=== PATIENT | male | born 1955 | race Caucasian/White ===

== ENCOUNTER → 2017-10-09 | Outpatient (RCR) | payer MEDICARE ==
[~2017-10-09] MED LIST: ATOR10TA; BETAPROSTATE; CALC625T; GLUC1TAB60; LVT.05T; SULF1TAB35
== END | disposition home or self-care (01) ==
LOC: CR3 09-09 10:00
PROVIDERS: ATTEND Internal Medicine
DX: Z29.8 Encounter for other specified prophylactic measures (principal)

== ENCOUNTER 2017-11-03 01:21 | Emergency (ER) | payer MEDICARE ==
[~2017-11-03] VITALS: Ht 175.3 cm; Wt 117.9 kg
--- NOTE | 2017-11-03 03:11 | ED Cough/URI ---
General Chief Complaint: Respiratory Problems Stated Complaint: SOA REACTION TO MEDS Nursing Triage Note: Pt c/o waking up Shortness of Air and got anxious. Started taking Doxycyline yesterday for a productive cough and was worried it was a medication reaction. Denies SOA at this time. Source: patient, other Exam Limitations: no limitations History of Present Illness Date Seen by Provider: November 03, 2017 Time Seen by Provider: 02:55 Initial Comments Patient resists to ER by private conveyance with his significant other and a chief complaint that for the past for 5 days she's been having some coughing and malaise. No fevers chills body aches nausea vomiting or diarrhea. He was seen by the PA at Dr. Merino's office and started on some doxycycline and Mucinex which he started taking and on his third dose he says he started having a bit of shortness of breath and was afraid it might be related to his medicine. Since being in the ER and this has passed. He does not have any medical allergies. He is having no stridor, difficulty swallowing secretions, productive cough. He does not smoke cigarettes and denies a history of asthma. Allergies and Home Medications Allergies Coded Allergies: codeine (Unverified Allergy, Mild, 11/03/17) Patient Home Medication List Home Medication List Reviewed: Yes Review of Systems Constitutional: No chills, No diaphoresis EENTM: No ear discharge, No ear pain Respiratory: No cough, No hemoptysis, No phlegm; short of breath; No wheezing Cardiovascular: No chest pain, No Hx of Intervention, No palpitations Gastrointestinal: No abdominal pain, No constipation, No diarrhea, No nausea, No vomiting Genitourinary: No discharge, No dysuria Musculoskeletal: No back pain, No joint pain Skin: No pruritus, No rash Past Emkdjnw-Qaqxdb-Qcgptm Hx Patient Social History Alcohol Use: Denies Use Recreational Drug Use: No Smoking Status: Never a Smoker Recent Foreign Travel: No Contact w/Someone Who Travel: No Recent Infectious Disease Expo: No Immunizations Up To Date Tetanus Booster (TDap): Less than 5yrs Seasonal Allergies Seasonal Allergies: No Past Medical History Eye Surgery Hypertension Reproductive Disorders: No Arthritis, Chronic Back Pain Loss of Vision: Bilateral Adverse Reaction/Blood Tranf: No Family Medical History No Pertinent Family Hx Physical Exam Vital Signs Vital Signs - First Documented 11/03/17 01:33 Temp 98.4 Pulse 62 Resp 20 B/P (MAP) 148/112 (124) Pulse Ox 96 Capillary Refill : Less Than 3 Seconds General Appearance: WD/WN, no apparent distress Eyes: Bilateral Eye Normal Inspection, Bilateral Eye PERRL, Bilateral Eye EOMI , Bilateral Eye Other (blind) HEENT: PERRL/EOMI, normal ENT inspection, pharynx normal, TM abnormal (R), TM abnormal (L) (mucoid effusion bilaterally) Neck: non-tender, full range of motion, supple, normal inspection Respiratory: chest non-tender, lungs clear, normal breath sounds, no respiratory distress, no accessory muscle use Cardiovascular: normal peripheral pulses, regular rate, rhythm, no edema Gastrointestinal: non tender, soft Procedures/Interventions Suture Size: 6-0 Progress/Results/Core Measures Suspected Sepsis Recent Fever Within 48 Hours: No Infection Criteria Present: None New/Unexplained Altered Menta: No Sepsis Screen: No Definite Risk SIRS Temperature:98.4 Pulse: 62 Respiratory Rate: 20 Blood Pressure 148 /112 Mean: 124 Results/Orders Vital Signs/I&O 11/03/17 01:33 Temp 98.4 Pulse 62 Resp 20 B/P (MAP) 148/112 (124) Pulse Ox 96 Capillary Refill : Less Than 3 Seconds Blood Pressure Mean: 124 Progress Note : Time: 03:09 Progress Note Walking well on doxycycline with mucoid effusion bilaterally of the TMs. We have discussed doing x-rays or lab and he would prefer to go home since he is feeling better. Departure Impression Primary Impression: Otitis media with effusion Qualified Codes: H65.93 - Unspecified nonsuppurative otitis media, bilateral Additional Impression: Viral upper respiratory tract infection with cough Disposition: HOME, SELF-CARE Condition: Stable Departure-Patient Inst. Decision time for Depature: 03:10 Referrals: NYDIA MERINO MD (PCP/Family) Primary Care Physician Patient Instructions: Serous Otitis Media (DC) Add. Discharge Instructions: Humidifiers, vapor rubs, drink plenty of fluids. Continue taking her medications as prescribed. 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 Follow-up with your primary care provider as needed. 1000 g Tylenol every 8 hours or 800 mg ibuprofen every 8 hours for body aches. All discharge instructions reviewed with patient and/or family. Voiced understanding. CINTHYA SALDANA November 03, 2017 03:11
[2017-11-03 03:26] VITALS: BP 148/112
== END 2017-11-03 03:26 | disposition home or self-care (01) ==
LOC: EDUNIT# 01:21 → ER 01:23
DX: H65.93 Unspecified nonsuppurative otitis media, bilateral (principal); J06.9 Acute upper respiratory infection, unspecified; I10 Essential (primary) hypertension; Z88.5 Allergy status to narcotic agent
CPT/HCPCS: 99281

== ENCOUNTER 2017-11-08 10:18 | Outpatient (RCR) | payer MEDICARE | END 2017-11-09 | disposition home or self-care (01) | LOC: CR3 10:18 | PROVIDERS: ATTEND Internal Medicine | DX: Z29.8 Encounter for other specified prophylactic measures (principal) ==

== ENCOUNTER 2017-12-05 06:00 | Outpatient (RCR) | payer MEDICARE | END 2017-12-11 | disposition home or self-care (01) | LOC: CR3 06:00 | PROVIDERS: ATTEND Internal Medicine | DX: Z29.8 Encounter for other specified prophylactic measures (principal) ==

== ENCOUNTER 2017-12-30 00:03 | Emergency (ER) | payer MEDICARE ==
[~2017-12-30] VITALS: Ht 172.7 cm; Wt 124.7 kg
--- OUTSIDE RECORDS SUMMARY | 2017-12-30 00:08 | XMS REPORT | Continuity of Care Document ---
Author Author [facility] Organization [facility] Address Unknown Phone Unavailable Allergies Active Description Code Type Severity Reaction Onset Reported/Identified Relationship to Patient Clinical Status Yes codeine [id number] Drug Allergy Mild N/A 11/03/2017 Medications There is no data. 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, DEFINED IN [place] 05/25/2015 EULALIO GONZALEZ MD Ot M12.9 ARTHROPATHY, UNSPECIFIED 05/25/2015 EULALIO GONZALEZ MD Ot M47.812 SPONDYLOSIS W/O MYELOPATHY OR RADICULOPA 05/25/2015 EULALIO GONZALEZ MD Ot M51.37 OTHER INTERVERTEBRAL DISC DEGENERATION, 05/25/2015 EULALIO GONZALEZ MD Ot S00.81XA ABRASION OF OTHER PART OF HEAD, INITIAL 05/25/2015 EULALIO GONZALEZ MD Ot S01.81XA LACERATION W/O FOREIGN BODY OF OTH PART 05/25/2015 EULALIO GONZALEZ MD Ot S09.90XA UNSPECIFIED INJURY OF HEAD, INITIAL ENCO 05/25/2015 EULALIO GONZALEZ MD Ot W13.9XXA FALL FROM, OUT OF OR THROUGH BLDG, NOT O 05/25/2015 EULALIO GONZALEZ MD Ot Y92.[address] IN SINGLE-FAMILY (PRIVATE) HO 05/25/2015 EULALIO GONZALEZ MD Ot Y93.H9 ACTVTY,OTH W EXTER PROPERTY LAND MAINT 05/25/2015 EULALIO GONZALEZ MD Ot Y99.8 OTHER EXTERNAL CAUSE STATUS 10/09/2017 NYDIA MERINO MD Ot Z29.8 ENCOUNTER FOR OTHER SPECIFIED PROPHYLACT 11/03/2017 CINTHYA SALDANA MD Ot H65.93 UNSPECIFIED NONSUPPURATIVE OTITIS MEDIA, 11/03/2017 CINTHYA SALDANA MD Ot I10 ESSENTIAL (PRIMARY) HYPERTENSION 11/03/2017 CINTHYA SALDANA MD Ot J06.9 ACUTE UPPER RESPIRATORY INFECTION, UNSPE 11/03/2017 CINTHYA SALDANA MD Ot R05 COUGH 11/03/2017 CINTHYA SALDANA MD Ot Z88.5 ALLERGY STATUS TO NARCOTIC AGENT STATUS 11/03/2017 ILEANA DELA CRUZ FACC, ALI FACP CCDS Ot 244.9 HYPOTHYROIDISM NOS 11/03/2017 ILEANA DELA CRUZ FACC, ALI FACP CCDS Ot 272.4 HYPERLIPIDEMIA NEC/NOS 11/03/2017 ILEANA DELA CRUZ FACC, ALI FACP CCDS Ot 278.00 OBESITY, NOS 11/03/2017 ILEANA DELA CRUZ FACC, ALI FACP CCDS Ot 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 11/03/2017 ILEANA DELA CRUZ FACC, ALI FACP CCDS Ot V17.3 FAM HX-ISCHEM HEART DIS 11/05/2017 CINTHYA SALDANA MD Ot H65.93 UNSPECIFIED NONSUPPURATIVE OTITIS MEDIA, 11/05/2017 CINTHYA SALDANA MD Ot I10 ESSENTIAL (PRIMARY) HYPERTENSION 11/05/2017 CINTHYA SALDANA MD Ot J06.9 ACUTE UPPER RESPIRATORY INFECTION, UNSPE 11/05/2017 CINTHYA SALDANA MD Ot R05 COUGH 11/05/2017 CINTHYA SALDANA MD Ot Z88.5 ALLERGY STATUS TO NARCOTIC AGENT STATUS 11/09/2017 NYDIA MERINO MD Ot Z29.8 ENCOUNTER FOR OTHER SPECIFIED PROPHYLACT 12/13/2017 NYDIA MERINO MD Ot Z29.8 ENCOUNTER FOR OTHER SPECIFIED PROPHYLACT Procedures There is no data. Results There is no data. Encounters ACCT No. Visit Date/Time Discharge Status Pt. Type Provider Facility Loc./Unit Complaint [id number] 12/25/2017 11:26:00 12/25/2017 23:59:59 CLS Outpatient NYDIA MERINO MD [facility] [address] [id number] 12/05/2017 06:00:00 12/11/2017 00:01:00 DIS Outpatient NYDIA MERINO MD [facility] [place] [id number] [facility] [id number] 11/08/2017 10:18:00 11/09/2017 00:01:00 DIS Outpatient NYDIA MERINO MD [facility] [id number] 11/03/2017 01:23:00 11/03/2017 03:26:00 DIS Emergency CINTHYA SALDANA MD [facility] ER SOA REACTION TO MEDS [id number] 10/09/2017 09:14:00 10/09/2017 00:01:00 DIS Outpatient NYDIA MERINO MD [facility] [place] [address] [place] [id number] 05/25/2015 15:44:00 05/25/2015 19:32:00 DIS Emergency EULALIO GONZALEZ MD [facility] ER TRAUMA [id number] 05/25/2013 10:05:00 05/25/2013 23:59:59 CLS Outpatient ILEANA DELA CRUZ FACC, SHAI CALDERON CCDS [facility] CARD HYPERLIPIDEMIA [id number] 11/03/2017 07:08:00 Document Registration [id number] 07/23/2012 09:09:00 Document Registration
[2017-12-30] MEDS ORDERED: LACTATED RINGERS 1,000 ML IV ONE (00:19)
[2017-12-30 00:26] LABS: BASOPHILS % (AUTO) 1 % (0-10); EOSINOPHILS # (AUTO) 0.2 10^3/uL (0.0-0.3); EOSINOPHILS % (AUTO) 3 % (0-10); HEMATOCRIT 40 % (40-54); HEMOGLOBIN 13.7 G/DL (13.3-17.7); LYMPHOCYTES # (AUTO) 3.1 X 10^3 (1.0-4.0); LYMPHOCYTES % (AUTO) 39 % (12-44); MEAN CORPUSCULAR HEMOGLOBIN 29 PG (25-34); MEAN CORPUSCULAR HGB CONC 35 G/DL (32-36); MEAN CORPUSCULAR VOLUME 84 FL (80-99); MEAN PLATELET VOLUME 10.4 FL (7.4-10.4); MONOCYTES # (AUTO) 0.9 X 10^3 (0.0-1.0); MONOCYTES % (AUTO) 11 % (0-12); NEUTROPHILS # (AUTO) 3.8 X 10^3 (1.8-7.8); NEUTROPHILS % (AUTO) 47 % (42-75); PLATELET COUNT 185 10^3/uL (130-400); RED BLOOD COUNT 4.71 10^6/uL (4.35-5.85); RED CELL DISTRIBUTION WIDTH 13.6 % (10.0-14.5)
[2017-12-30 00:32] LABS: INR 1.1 (0.8-1.4); PROTHROMBIN TIME PATIENT 14.2 SEC (12.2-14.7)
[2017-12-30 00:39] LABS: ALANINE AMINOTRANSFERASE 18 U/L (0-55); ALBUMIN 4.1 GM/DL (3.2-4.5); ALKALINE PHOSPHATASE 72 U/L (40-136); AMYLASE 55 U/L (25-125); BILIRUBIN,TOTAL 0.4 MG/DL (0.1-1.0); BUN/CREATININE RATIO 12; CALCIUM 9.1 MG/DL (8.5-10.1); CARBON DIOXIDE 22 MMOL/L (21-32); CHLORIDE 109 MMOL/L (98-107); CREATININE SERUM 0.81 MG/DL (0.60-1.30); GFR ESTIMATED > 60; GLUCOSE 111 MG/DL (70-105); LIPASE 35 U/L (8-78); MAGNESIUM 2.3 MG/DL (1.8-2.4); POTASSIUM 3.8 MMOL/L (3.6-5.0); SODIUM 142 MMOL/L (135-145); TOTAL PROTEIN 6.4 GM/DL (6.4-8.2)
[2017-12-30 00:59] LABS: TSH (THYROID ANALYZER) 2.05 UIU/ML (0.35-4.94)
[2017-12-30 01:06] LABS: BILIRUBIN,URINE NEGATIVE (NEGATIVE); CLARITY,URINE CLEAR; COLOR,URINE YELLOW; GLUCOSE, URINE (UA) NEGATIVE (NEGATIVE); KETONES,URINE NEGATIVE (NEGATIVE); LEUKOCYTE ESTERASE ,URINE NEGATIVE (NEGATIVE); NITRITE,URINE NEGATIVE (NEGATIVE); PH,URINE 5 (5-9); PROTEIN,URINE NEGATIVE (NEGATIVE); UROBILINOGEN,URINE NORMAL (NORMAL)
[2017-12-30 01:15] LABS: BACTERIA,URINE NEGATIVE /HPF; SQUAMOUS EPITHELIAL CELL,UR RARE /HPF
--- NOTE | 2017-12-30 01:35 | ED General ---
General Chief Complaint: General Problems/Pain Stated Complaint: DEHYDRATION Source of Information: Patient History of Present Illness Date Seen by Provider: Dec 30, 2017 Time Seen by Provider: 00:02 Initial Comments PT ARRIVES VIA EMS PT WALKED TO POLICE STATION, AND THEY CALLED EMS PT STATES "I'M DEHYDRATED" PT REPEATS "I'M JUST SO DRY" PT STATES "I KEEP DRINKING WATER AND GATORADE BUT I STILL FEEL LIKE I'M DRY" C/O DRY MOUTH--HAS HAD A SALIVARY GLAND REMOVED, AND MOUTH IS ALWAYS DRY, BUT THIS IS WORSE THAN NORMAL SYMPTOMS BEGAN SOMETIME AFTER 2200 TONIGHT STATES HE IS VOIDING A NORMAL AMOUNT--LAST VOID JUST PRIOR TO WALKING TO [employer] STATION NO PAIN ON URINATION NO NAUSEA/VOMITING/DIARRHEA NO ABDOMINAL PAIN NO BACK PAIN NO CHEST PAIN OR SHORTNESS OF BREATH NO DIZZINESS C/O SLIGHT HEADACHE PT STATES HE WAS OUT IN THE HEAT APPROXIMATELY AN HOUR YESTERDAY--WALKED TO AND FROM [employer], A LITTLE OVER A MILE EACH WAY. OTHERWISE HAS NOT BEEN OUT IN THE HEAT STATES HE FELT FINE ALL DAY TODAY EATING AND DRINKING NORMALLY PCP: DR. MERINO Allergies and Home Medications Allergies Coded Allergies: codeine (Unverified Allergy, Mild, 11/03/17) Patient Home Medication List Home Medication List Reviewed: Yes Review of Systems Constitutional: see HPI, dizziness EENTM: see HPI, vision loss (BLIND SINCE AGE 4) Respiratory: no symptoms reported; No cough, No short of breath Cardiovascular: no symptoms reported; No chest pain, No edema, No palpitations , No syncope Gastrointestinal: no symptoms reported; No abdominal pain, No diarrhea, No loss of appetite, No nausea, No vomiting Genitourinary: no symptoms reported; No decreased output Musculoskeletal: no symptoms reported Skin: no symptoms reported Psychiatric/Neurological: See HPI, Headache (SLIGHT), Pre-Existing Deficit ( NEUROPATHY FROM WAIST 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 INJURY) Hematologic/Lymphatic: No Symptoms Reported Immunological/Allergic: no symptoms reported Past Irunhqo-Uzeffo-Skucrb Hx Patient Social History Alcohol Use: Denies Use Recreational Drug Use: No Smoking Status: Never a Smoker Recent Hopitalizations: No Physical Abuse: No Sexual Abuse: No Immunizations Up To Date Tetanus Booster (TDap): Less than 5yrs Seasonal Allergies Seasonal Allergies: No Past Medical History Surgeries: Yes (URETHRAL MEATOTOMY; SURGERY FOR NASAL FRACTURE; LEFT SHOULDER- TORN LABRUM; RIGHT SHOULDER--TORN MENISCUS; BILATERAL KNEES--TORN MENISCUS; RIGHT KNEE ACL REPAIR; LEFT SUBMANDIBULAR SALIVARY GLAND SURGERY) Eye Surgery, Nose, Orthopedic Respiratory: No Cardiac: Yes High Cholesterol Neurological: Yes (NEUROPATHY FROM WAIST 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 TRAUMA) Neuropathy Reproductive Disorders: No Sexually Transmitted Disease: No Genitourinary: No Gastrointestinal: No Musculoskeletal: Yes (SHOULDER AND KNEE SURGERIES) Arthritis, Chronic Back Pain Endocrine: Yes (OBESITY) Hypothyroidsim HEENT: Yes (SALIVARY GLANDS REMOVED; BLIND SINCE AGE 4--OVERDOSED ON ASPIRIN AND HOSPITALIZED X 3 MONTHS--"PARALYZED OPTIC NERVES" ) Loss of Vision: Bilateral Cancer: No Psychosocial: No Nursing Suicide Risk Score: 0 Integumentary: No Blood Disorders: No Adverse Reaction/Blood Tranf: No Family Medical History No Pertinent Family Hx Physical Exam Vital Signs Vital Signs - First Documented 12/30/17 00:03 Temp 98.6 Pulse 82 Resp 14 B/P (MAP) 137/87 (104) Pulse Ox 98 O2 Delivery Room Air Capillary Refill : Height, Weight, BMI Height: 5'9.00" Weight: 260lbs. oz. 117.450471oe; BMI Method:Stated General Appearance: No Apparent Distress, WD/WN, Obese, Other (SMILING, TALKATIVE, LAUGHING, VERY PLEASANT) Eyes: Bilateral Eye Other (BLINDNESS BILATERALLY. WEARING DARK GLASSES AND USES A WALKING STICK) HEENT: Other (ORAL MUCOSA SLIGHTLY DRY ; BLIND--CHRONIC CHANGES TO EYES AND EXTRA-OCULAR MUSCLES CANNOT BE EXAMINED--CONTINUOUS EYE MOVEMENTS. ) Neck: Normal Inspection Respiratory: Normal Breath Sounds, No Accessory Muscle Use, No Respiratory Distress Cardiovascular: Regular Rate, Rhythm, No Edema, No JVD, No Murmur, Normal Peripheral Pulses Gastrointestinal: Normal Bowel Sounds, No Organomegaly, Non Tender, Soft Extremity: Normal Capillary Refill, Normal Inspection, Normal Range of Motion, Non Tender, No Calf Tenderness, No Pedal Edema Neurologic/Psychiatric: Alert, Oriented x3, No Motor/Sensory Deficits (GROSSLY INTACT, BUT WITH HISTORY OF NEUROPATHY FROM WAIST DOWN.), Normal Mood/Affect, Other (BLIND--UNABLE TO TEST EXTRAOCULAR MUSCLES) Skin: Normal Color, Warm/Dry Procedures/Interventions Suture Size: 6-0 Progress/Results/Core Measures Suspected Sepsis SIRS Temperature: Pulse: Respiratory Rate: Laboratory Tests 12/30/17 00:10: White Blood Count 8.0 Blood Pressure / Mean: Laboratory Tests 12/30/17 00:10: Creatinine 0.81, INR Comment 1.1, Platelet Count 185, Total Bilirubin 0.4 Results/Orders Lab Results Laboratory Tests Test 12/30/17 00:10 12/30/17 00:58 Range/Units White Blood Count 8.0 4.3-11.0 10^3/uL Red Blood Count 4.71 4.35-5.85 10^6/uL Hemoglobin 13.7 13.3-17.7 G/DL Hematocrit 40 40-54 % Mean Corpuscular Volume 84 80-99 FL Mean Corpuscular Hemoglobin 29 25-34 PG Mean Corpuscular Hemoglobin Concent 35 32-36 G/DL Red Cell Distribution Width 13.6 10.0-14.5 % Platelet Count 185 130-400 10^3/uL Mean Platelet Volume 10.4 7.4-10.4 FL Neutrophils (%) (Auto) 47 42-75 % Lymphocytes (%) (Auto) 39 12-44 % Monocytes (%) (Auto) 11 0-12 % Eosinophils (%) (Auto) 3 0-10 % Basophils (%) (Auto) 1 0-10 % Neutrophils # (Auto) 3.8 1.8-7.8 X 10^3 Lymphocytes # (Auto) 3.1 1.0-4.0 X 10^3 Monocytes # (Auto) 0.9 0.0-1.0 X 10^3 Eosinophils # (Auto) 0.2 0.0-0.3 10^3/uL Basophils # (Auto) 0.0 0.0-0.1 10^3/uL Prothrombin Time 14.2 12.2-14.7 SEC INR Comment 1.1 0.8-1.4 Activated Partial Thromboplast Time 30 24-35 SEC Sodium Level 142 135-145 MMOL/L Potassium Level 3.8 3.6-5.0 MMOL/L Chloride Level 109 H 98-107 MMOL/L Carbon Dioxide Level 22 21-32 MMOL/L Anion Gap 11 5-14 MMOL/L Blood Urea Nitrogen 10 7-18 MG/DL Creatinine 0.81 0.60-1.30 MG/DL Estimat Glomerular Filtration Rate > 60 BUN/Creatinine Ratio 12 Glucose Level 111 H 70-105 MG/DL Calcium Level 9.1 8.5-10.1 MG/DL Magnesium Level 2.3 1.8-2.4 MG/DL Total Bilirubin 0.4 0.1-1.0 MG/DL Aspartate Amino Transf (AST/SGOT) 18 5-34 U/L Alanine Aminotransferase (ALT/SGPT) 18 0-55 U/L Alkaline Phosphatase 72 40-136 U/L Total Protein 6.4 6.4-8.2 GM/DL Albumin 4.1 3.2-4.5 GM/DL Amylase Level 55 25-125 U/L Lipase 35 8-78 U/L TSH [place] Testing 2.05 0.35-4.94 UIU/ML Urine Color YELLOW Urine Clarity CLEAR Urine pH 5 5-9 Urine Specific [place] 1.005 L 1.016-1.022 Urine Protein NEGATIVE NEGATIVE Urine Glucose (UA) NEGATIVE NEGATIVE Urine Ketones NEGATIVE NEGATIVE Urine Nitrite NEGATIVE NEGATIVE Urine Bilirubin NEGATIVE NEGATIVE Urine Urobilinogen NORMAL NORMAL MG/DL Urine Leukocyte Esterase NEGATIVE NEGATIVE Urine RBC (Auto) NEGATIVE NEGATIVE Urine RBC NONE /HPF Urine WBC NONE /HPF Urine Squamous Epithelial Cells RARE /HPF Urine Crystals NONE /LPF Urine Bacteria NEGATIVE /HPF Urine Casts NONE /LPF Urine Mucus NEGATIVE /LPF Urine Culture Indicated NO My Orders Orders - CITLALLI MCCORMCAK DO Saline Lock/Iv-Start (12/30/17:19) Monitor-Rhythm Ecg Trace Only (12/30/17:19) Amylase (12/30/17:) Cbc With Automated Diff (12/30/17:) Comprehensive Metabolic Panel (12/30/17:) Lipase (12/30/17:) Magnesium (12/30/17:) Protime With Inr (12/30/17:) Partial Thromboplastin Time (12/30/17:) Thyroid Analyzer (12/30/17:) Ua Culture If Indicated (12/30/17:) Saline Lock/Iv-Start (12/30/17:19) Lactated Ringers (Lr 1000 Ml Iv Solution (12/30/17:19) Medications Given in ED Current Medications Medications Dose Ordered Sig/Pablo Route Start Time Stop Time Status Last Admin Dose Admin Lactated Ringer's 1,000 ml @ 0 mls/hr Q0M ONCE IV 12/30/17 00:19 12/30/17 00:22 DC 12/30/17 00:50 0 MLS/HR Vital Signs/I&O 12/30/17 12/30/17 00:03 01:46 Temp 98.6 Pulse 82 82 Resp 14 14 B/P (MAP) 137/87 (104) 137/87 Pulse Ox 98 98 O2 Delivery Room Air Room Air Capillary Refill : Progress Note : Progress Note STATES HE FEELS MUCH BETTER AFTER IV FLUIDS STATES HE FEELS BACK TO NORMAL PRIOR TO DISMISSAL Departure Impression Primary Impression: Mild dehydration Disposition: HOME, SELF-CARE Condition: Improved Departure-Patient Inst. Referrals: NYDIA MERINO MD (PCP/Family) Primary Care Physician Patient Instructions: Urinary Tract Infection, Adult (DC) Add. Discharge Instructions: LOTS OF CLEAR LIQUIDS--WATER, BROTH , JELLO, GATORADE TAKE YOUR REGULAR MEDICATIONS PRESCRIBED FOLLOW UP WITH YOUR DR IN 1-2 DAYS IF NO BETTER RETURN TO ER IF WORSE All discharge instructions reviewed with patient and/or family. Voiced understanding. CITLALLI MCCORMACK DO Dec 30, 2017 01:35
[2017-12-30 01:46] VITALS: BP 137/87
== END 2017-12-30 01:48 | disposition home or self-care (01) ==
LOC: EDUNIT# 00:03 → ER 00:04
DX: E86.0 Dehydration (principal); E78.00 Pure hypercholesterolemia, unspecified; E66.9 Obesity, unspecified; E03.9 Hypothyroidism, unspecified; Z88.5 Allergy status to narcotic agent; Z96.653 Presence of artificial knee joint, bilateral
CPT/HCPCS: 36415; 80053; 81000; 82150; 83690; 83735; 84443; 85025; 85610; 85730; 93041; 96360

== ENCOUNTER → 2017-12-31 | Outpatient (CLI) | payer MEDICARE ==
[~2017-12-31] MED LIST changes: +IOHEXOL 350 MG/ML 100 ML (OMNIPAQUE 350) VIAL IV ONE; +NS 250 ML (IVPB) BAG IV ONE
[2017-12-31 11:45] LABS: BUN/CREATININE RATIO 14; CREATININE SERUM 0.83 MG/DL (0.60-1.30); GFR ESTIMATED > 60
--- NOTE | 2017-12-31 13:29 | Diagnostic Imaging Report ---
Indication: Headache and hypertension CT head obtained pre-and post IV contrast. Comparison made with 05/25/2015 There were no extra-axial fluid collections. No intracranial hemorrhage. No intracranial mass or mass effect. No midline shift. The ventricles are normal in size. 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 There is no new intracranial abnormality. Postcontrast images demonstrate no enhancing intracranial lesions. Calvarial windows are unremarkable. 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 There is no new hemorrhage or mass effect or enhancing intracranial lesion. Report was called to ZULEMA Rosales by [email or web address] at 1:30 p.m. Dictated by: Dictated on workstation # [id number]
== END ==
LOC: RAD 11:09
PROVIDERS: ATTEND Physician Assistant
DX: I63.9 Cerebral infarction, unspecified (principal); I10 Essential (primary) hypertension
CPT/HCPCS: 36415; 70470; 82565; 84520

== ENCOUNTER 2018-01-08 00:23 | Emergency (ER) | payer MEDICARE ==
[~2018-01-08] VITALS: Ht 172.7 cm; Wt 124.7 kg
[2018-01-08] MEDS ORDERED: LACTATED RINGERS 1,000 ML IV ONE (00:31)
[2018-01-08 00:48] LABS: BASOPHILS # (AUTO) 0.1 10^3/uL (0.0-0.1); BASOPHILS % (AUTO) 1 % (0-10); EOSINOPHILS # (AUTO) 0.2 10^3/uL (0.0-0.3); EOSINOPHILS % (AUTO) 2 % (0-10); HEMATOCRIT 42 % (40-54); HEMOGLOBIN 14.8 G/DL (13.3-17.7); LYMPHOCYTES # (AUTO) 2.6 X 10^3 (1.0-4.0); LYMPHOCYTES % (AUTO) 30 % (12-44); MEAN CORPUSCULAR HEMOGLOBIN 30 PG (25-34); MEAN CORPUSCULAR HGB CONC 36 G/DL (32-36); MEAN CORPUSCULAR VOLUME 84 FL (80-99); MEAN PLATELET VOLUME 10.4 FL (7.4-10.4); MONOCYTES # (AUTO) 0.9 X 10^3 (0.0-1.0); MONOCYTES % (AUTO) 10 % (0-12); NEUTROPHILS % (AUTO) 57 % (42-75); PLATELET COUNT 184 10^3/uL (130-400); RED BLOOD COUNT 4.95 10^6/uL (4.35-5.85); RED CELL DISTRIBUTION WIDTH 13.2 % (10.0-14.5); WHITE BLOOD COUNT 8.8 10^3/uL (4.3-11.0)
[2018-01-08 00:59] LABS: BILIRUBIN,URINE NEGATIVE (NEGATIVE); CLARITY,URINE CLEAR; COLOR,URINE YELLOW; GLUCOSE, URINE (UA) NEGATIVE (NEGATIVE); KETONES,URINE NEGATIVE (NEGATIVE); LEUKOCYTE ESTERASE ,URINE NEGATIVE (NEGATIVE); NITRITE,URINE NEGATIVE (NEGATIVE); PH,URINE 6 (5-9); PROTEIN,URINE NEGATIVE (NEGATIVE); UROBILINOGEN,URINE NORMAL (NORMAL)
[2018-01-08 01:04] LABS: ALANINE AMINOTRANSFERASE 26 U/L (0-55); ALBUMIN 4.5 GM/DL (3.2-4.5); ALKALINE PHOSPHATASE 91 U/L (40-136); BILIRUBIN,TOTAL 0.4 MG/DL (0.1-1.0); BUN/CREATININE RATIO 15; CALCIUM 9.6 MG/DL (8.5-10.1); CARBON DIOXIDE 25 MMOL/L (21-32); CHLORIDE 105 MMOL/L (98-107); CREATININE SERUM 0.95 MG/DL (0.60-1.30); GFR ESTIMATED > 60; GLUCOSE 107 MG/DL (70-105); MAGNESIUM 2.2 MG/DL (1.8-2.4); POTASSIUM 4.3 MMOL/L (3.6-5.0); SODIUM 141 MMOL/L (135-145); TOTAL PROTEIN 7.1 GM/DL (6.4-8.2)
[2018-01-08 01:12] LABS: AMPHETAMINE SCREEN, URINE NEGATIVE (NEGATIVE); BARBITURATE SCREEN URINE NEGATIVE (NEGATIVE); BENZODIAZEPINES SCREEN URINE NEGATIVE (NEGATIVE); CANNABINOID SCREEN, URINE NEGATIVE (NEGATIVE); COCAINE SCREEN URINE NEGATIVE (NEGATIVE); METHADONE STAT NEGATIVE (NEGATIVE); METHAMPHETAMINE SCREEN URINE S NEGATIVE (NEGATIVE); OPIATE SCREEN URINE NEGATIVE (NEGATIVE); OXYCODONE STAT NEGATIVE (NEGATIVE); PROPOXYPHENE STAT NEGATIVE (NEGATIVE); TRICYCLIC ANTIDEPRESSANTS SCRE NEGATIVE (NEGATIVE)
[2018-01-08 01:16] LABS: BACTERIA,URINE NEGATIVE /HPF; SQUAMOUS EPITHELIAL CELL,UR RARE /HPF
[2018-01-08 01:24] LABS: TSH (THYROID ANALYZER) 2.67 UIU/ML (0.35-4.94)
--- NOTE | 2018-01-08 01:25 | ED General ---
General Chief Complaint: General Problems/Pain Stated Complaint: POSSIBLE DEHYDRATION Source of Information: Patient, Old Records History of Present Illness Date Seen by Provider: Jan 08, 2018 Time Seen by Provider: 00:27 Initial Comments PT ARRIVES VIA POV PT THINKS HE IS DEHYDRATED PT WALKS ALL THE TIME, AND WALKED 28 BLOCKS TODAY--NORMAL FOR HIM STATES "I KEEP GETTING DRY" REPEATS "JUST REAL DRY" "JUST BONE DRY" " REAL, REAL DRY" "CAN'T GET ENOUGH TO DRINK" REPEATS "I KEEP DRINKING AND IT'S NOT DOING NO GOOD" THIS IS ONGOING PROBLEM--WAS SEEN HERE IN ER RECENTLY FOR SAME--12/30/17, WORK UP ESSENTIALLY NORMAL PT STATES HE EATS AND DRINKS WELL, AND IS URINATING ALOT--STATES HE IS CONSTANTLY DRINKING BECAUSE HIS MOUTH AND THROAT ALWAYS FEEL DRY OTHERWISE DOES NOT FEEL BAD IN ANY WAY--JUST HAS A DRY MOUTH PT STATES HE ALWAYS HAS A DRY MOUTH, BUT LATELY IT HAS BEEN WORSE THAN USUAL. 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 LAST DOSE WAS Saturday01/03/18, AND FEELS LIKE SWELLING HAS COME BACK HAS FOLLOW UP APPOINTMENT WITH DR MERINO TOMORROW PCP: DR. MERINO Allergies and Home Medications Allergies Coded Allergies: codeine (Unverified Allergy, Mild, 11/03/17) Patient Home Medication List Home Medication List Reviewed: Yes Review of Systems Constitutional: no symptoms reported EENTM: see HPI; No hoarseness, No throat pain, No throat swelling Respiratory: no symptoms reported Cardiovascular: no symptoms reported Gastrointestinal: no symptoms reported Genitourinary: no symptoms reported Musculoskeletal: no symptoms reported Skin: no symptoms reported Psychiatric/Neurological: No Symptoms Reported Hematologic/Lymphatic: No Symptoms Reported Immunological/Allergic: no symptoms reported Past Jakpxej-Jqlyct-Ucinhp Hx Patient Social History Alcohol Use: Denies Use Recreational Drug Use: No Smoking Status: Never a Smoker Recent Foreign Travel: No Contact w/Someone Who Travel: No Recent Hopitalizations: No Immunizations Up To Date Tetanus Booster (TDap): Less than 5yrs Seasonal Allergies Seasonal Allergies: No Past Medical History Surgeries: Yes (URETHRAL MEATOTOMY; SURGERY FOR NASAL FRACTURE; LEFT SHOULDER- TORN LABRUM; RIGHT SHOULDER--TORN "MENISCUS" ; BILATERAL KNEES--TORN MENISCUS; RIGHT KNEE ACL REPAIR; LEFT SUBMANDIBULAR GLAND SURGERY) Bladder Surgery, Eye Surgery, Nose, Orthopedic Respiratory: No Cardiac: Yes High Cholesterol Neurological: Yes (NEUROPATHY FROM WAIST 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 TRAUMA) Neuropathy Reproductive Disorders: No Sexually Transmitted Disease: No Genitourinary: No Gastrointestinal: No Musculoskeletal: Yes (SHOULDER AND KNEE SURGERIES) Arthritis, Chronic Back Pain Endocrine: Yes (OBESITY) Hypothyroidsim HEENT: Yes (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 ) Loss of Vision: Bilateral Cancer: No Psychosocial: No Integumentary: No Blood Disorders: No Adverse Reaction/Blood Tranf: No Family Medical History No Pertinent Family Hx Physical Exam Vital Signs Vital Signs - First Documented 01/08/18 00:27 Temp 97.1 Pulse 61 Resp 16 B/P (MAP) 135/95 (108) Pulse Ox 98 O2 Delivery Room Air Capillary Refill : Height, Weight, BMI Height: 5'8.00" Weight: 275lbs. oz. 124.667463lg; BMI Method:Estimated General Appearance: No Apparent Distress, WD/WN, Other (SMILING, TALKATIVE, PLEASANT) HEENT: Other (BLIND BILATERALLY-CHRONIC CHANGES TO EYES, WEARING DARK GLASSES. ORAL MUCOSA DOES NOT APPEAR DRY AT THIS TIME, BUT PT HAS BEEN DRINKING WATER. ) Respiratory: Normal Breath Sounds, No Accessory Muscle Use, No Respiratory Distress Cardiovascular: Regular Rate, Rhythm, No JVD, No Murmur, Normal Peripheral Pulses Gastrointestinal: Non Tender, Soft Extremity: Pedal Edema (2+ EDEMA BILATERALLY) Neurologic/Psychiatric: Alert, Oriented x3, Normal Mood/Affect, Other (NEURO AT BASELINE) Skin: Normal Color, Warm/Dry Procedures/Interventions Suture Size: 6-0 Progress/Results/Core Measures Suspected Sepsis SIRS Temperature: Pulse: Respiratory Rate: Laboratory Tests 01/08/18 00:41: White Blood Count 8.8 Blood Pressure / Mean: Laboratory Tests 01/08/18 00:41: Creatinine 0.95, Platelet Count 184, Total Bilirubin 0.4 Results/Orders Lab Results Laboratory Tests Test 01/08/18 00:41 01/08/18 00:52 Range/Units White Blood Count 8.8 4.3-11.0 10^3/uL Red Blood Count 4.95 4.35-5.85 10^6/uL Hemoglobin 14.8 13.3-17.7 G/DL Hematocrit 42 40-54 % Mean Corpuscular Volume 84 80-99 FL Mean Corpuscular Hemoglobin 30 25-34 PG Mean Corpuscular Hemoglobin Concent 36 32-36 G/DL Red Cell Distribution Width 13.2 10.0-14.5 % Platelet Count 184 130-400 10^3/uL Mean Platelet Volume 10.4 7.4-10.4 FL Neutrophils (%) (Auto) 57 42-75 % Lymphocytes (%) (Auto) 30 12-44 % Monocytes (%) (Auto) 10 0-12 % Eosinophils (%) (Auto) 2 0-10 % Basophils (%) (Auto) 1 0-10 % Neutrophils # (Auto) 5.0 1.8-7.8 X 10^3 Lymphocytes # (Auto) 2.6 1.0-4.0 X 10^3 Monocytes # (Auto) 0.9 0.0-1.0 X 10^3 Eosinophils # (Auto) 0.2 0.0-0.3 10^3/uL Basophils # (Auto) 0.1 0.0-0.1 10^3/uL Sodium Level 141 135-145 MMOL/L Potassium Level 4.3 3.6-5.0 MMOL/L Chloride Level 105 98-107 MMOL/L Carbon Dioxide Level 25 21-32 MMOL/L Anion Gap 11 5-14 MMOL/L Blood Urea Nitrogen 14 7-18 MG/DL Creatinine 0.95 0.60-1.30 MG/DL Estimat Glomerular Filtration Rate > 60 BUN/Creatinine Ratio 15 Glucose Level 107 H 70-105 MG/DL Calcium Level 9.6 8.5-10.1 MG/DL Magnesium Level 2.2 1.8-2.4 MG/DL Total Bilirubin 0.4 0.1-1.0 MG/DL Aspartate Amino Transf (AST/SGOT) 19 5-34 U/L Alanine Aminotransferase (ALT/SGPT) 26 0-55 U/L Alkaline Phosphatase 91 40-136 U/L Troponin I < 0.30 <0.30 NG/ML Total Protein 7.1 6.4-8.2 GM/DL Albumin 4.5 3.2-4.5 GM/DL TSH [place] Testing 2.67 0.35-4.94 UIU/ML Serum Alcohol < 10 <10 MG/DL Urine Color YELLOW Urine Clarity CLEAR Urine pH 6 5-9 Urine Specific [place] 1.015 L 1.016-1.022 Urine Protein NEGATIVE NEGATIVE Urine Glucose (UA) NEGATIVE NEGATIVE Urine Ketones NEGATIVE NEGATIVE Urine Nitrite NEGATIVE NEGATIVE Urine Bilirubin NEGATIVE NEGATIVE Urine Urobilinogen NORMAL NORMAL MG/DL Urine Leukocyte Esterase NEGATIVE NEGATIVE Urine RBC (Auto) NEGATIVE NEGATIVE Urine RBC NONE /HPF Urine WBC NONE /HPF Urine Squamous Epithelial Cells RARE /HPF Urine Crystals NONE /LPF Urine Bacteria NEGATIVE /HPF Urine Casts NONE /LPF Urine Mucus NEGATIVE /LPF Urine Culture Indicated NO Urine Opiates Screen NEGATIVE NEGATIVE Urine Oxycodone Screen NEGATIVE NEGATIVE Urine Methadone Screen NEGATIVE NEGATIVE Urine Propoxyphene Screen NEGATIVE NEGATIVE Urine Barbiturates Screen NEGATIVE NEGATIVE Ur Tricyclic Antidepressants Screen NEGATIVE NEGATIVE Urine Phencyclidine Screen NEGATIVE NEGATIVE Urine Amphetamines Screen NEGATIVE NEGATIVE Urine Methamphetamines Screen NEGATIVE NEGATIVE Urine Benzodiazepines Screen NEGATIVE NEGATIVE Urine Cocaine Screen NEGATIVE NEGATIVE Urine Cannabinoids Screen NEGATIVE NEGATIVE My Orders Orders - CITLALLI MCCORMACK K DO Saline Lock/Iv-Start (01/08/18 00:31) Monitor-Rhythm Ecg Trace Only (01/08/18 00:31) Alcohol (01/08/18 00:31) Cbc With Automated Diff (01/08/18 00:31) Comprehensive Metabolic Panel (01/08/18 00:31) Drug Screen Stat (Urine) (01/08/18 00:31) Magnesium (01/08/18 00:31) Thyroid Analyzer (01/08/18 00:31) Troponin I (01/08/18 00:31) Ua Culture If Indicated (01/08/18 00:31) Saline Lock/Iv-Start (01/08/18 00:31) Lactated Ringers (Lr 1000 Ml Iv Solution (01/08/18 00:31) Medications Given in ED Current Medications Medications Dose Ordered Sig/Pablo Route Start Time Stop Time Status Last Admin Dose Admin Lactated Ringer's 1,000 ml @ 0 mls/hr Q0M ONCE IV 8 00:31 01/08/18 00:32 DC 01/08/18 00:47 0 MLS/HR Vital Signs/I&O 01/08/18 00:27 Temp 97.1 Pulse 61 Resp 16 B/P (MAP) 135/95 (108) Pulse Ox 98 O2 Delivery Room Air Capillary Refill : Progress Note : Progress Note UNEVENTFUL ER STAT STATES HE FEELS BETTER AT DISMISSAL Departure Impression Primary Impression: Dry mouth Disposition: HOME, SELF-CARE Condition: Stable Departure-Patient Inst. Referrals: NYDIA MERINO MD (PCP/Family) Primary Care Physician Patient Instructions: Xerostomia Add. Discharge Instructions: KEEP YOUR APPOINTMENT WITH DR. MERINO TOMORROW CONTINUE YOUR REGULAR MEDICATIONS PRESCRIBED OVER THE COUNTER BIOTENE OR ACT DRY MOUTH RINSES All discharge instructions reviewed with patient and/or family. Voiced understanding. CITLALLI MCCORMACK DO Jan 08, 2018 01:25
[2018-01-08 02:18] VITALS: BP 135/95
== END 2018-01-08 02:17 | disposition home or self-care (01) ==
LOC: EDUNIT# 00:23 → ER 00:25
DX: R68.2 Dry mouth, unspecified (principal); E78.00 Pure hypercholesterolemia, unspecified; E66.9 Obesity, unspecified; E03.9 Hypothyroidism, unspecified; Z88.5 Allergy status to narcotic agent; Z68.41 Body mass index [BMI] 40.0-44.9, adult; Z96.653 Presence of artificial knee joint, bilateral; Z98.890 Other specified postprocedural states
CPT/HCPCS: 36415; 80053; 80306; 80320; 81000; 83735; 84443; 84484; 85025; 93041; 96360

== ENCOUNTER 2018-01-08 10:05 | Emergency (ER) | payer MEDICARE ==
[~2018-01-08] VITALS: Ht 175.3 cm; Wt 121.1 kg
--- NOTE | 2018-01-08 11:34 | ED General ---
General Chief Complaint: General Problems/Pain Stated Complaint: POSS DEHYDRATION,LEGS SWELLING Nursing Triage Note: PT IS BLIND. ASSISTED TO ROOM 06. PT STATES HE FEELS LIKE HE IS DRY. WAS HERE LAST NIGHT AND RECIEVED IVF. Nursing Sepsis Screen: No Definite Risk Source of Information: Patient (MAXIME BERGERON MEDICAL STUDENT) History of Present Illness Date Seen by Provider: Jan 08, 2018 Time Seen by Provider: 11:17 Initial Comments Pt presents to the ED c/o bilateral lower ext edema which has worsened since his prior ED visit this morning. He was scheduled to see Dr. Merino today to follow up on this, called their office over concern for his symptoms, and was instructed to go to the ED. He has experienced edema in his legs intermittently since October. He was prescribed a short course (3d) of Lasix, which provided modest improvement. Not treating with any other medications. He has been keeping his legs raised. Walking is his primary mode of transportation. He's not experiencing any concerning pain other than his peripheral neuropathy. Denies erythema, tenderness or warmth of skin. Denies hx cardiovascular disease. Also complaining of xerostomia. Says he has a hx of salivary gland removal. Oral fluids don't seem to help. Associated Systoms: No Chest Pain, No Fever/Chills, No Headaches, No Shortness of Air, No Weakness (MAXIME BERGERON MEDICAL STUDENT) Initial Comments Patient evaluated by Maxime Bergeron, 3rd year medical student, all documentation and assessment of patient completed by this provider as well. Concurred with documentation. Patient is blind and documents notes with bro. (SONY MCKEON) Allergies and Home Medications Allergies Coded Allergies: codeine (Unverified Allergy, Mild, 11/03/17) Patient Home Medication List Home Medication List Reviewed: Yes (SONY MCKEON) Review of Systems Constitutional: no symptoms reported, see HPI, other (complaints of dry mouth, regardless of amount of water he consumes. ) EENTM: see HPI, no symptoms reported Respiratory: no symptoms reported, see HPI (SONY MCKEON) All Other Systems Reviewed Negative Unless Noted: Yes (SONY MCKEON) Past Jdncxmz-Ltkinu-Pzxqhe Hx Past Med/Social Hx: Reviewed and Corrections made (SONY MCKEON) Patient Social History Alcohol Use: Denies Use Recreational Drug Use: No Smoking Status: Never a Smoker Recent Foreign Travel: No Contact w/Someone Who Travel: No Recent Infectious Disease Expo: No Recent Hopitalizations: No (MAXIME BERGERON MEDICAL STUDENT) Immunizations Up To Date Tetanus Booster (TDap): Less than 5yrs (MAXIME BERGERON MEDICAL STUDENT) Seasonal Allergies Seasonal Allergies: No (MAXIME BERGERON MEDICAL STUDENT) Past Medical History Surgeries: Yes Bladder Surgery, Eye Surgery, Nose, Orthopedic Respiratory: No Cardiac: Yes High Cholesterol Neurological: Yes (NEUROPATHY FROM WAIST 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 TRAUMA) Neuropathy Reproductive Disorders: No Sexually Transmitted Disease: No Genitourinary: No Gastrointestinal: No Musculoskeletal: Yes (SHOULDER AND KNEE SURGERIES) Arthritis, Chronic Back Pain Endocrine: Yes (OBESITY) Hypothyroidsim HEENT: Yes Loss of Vision: Bilateral Cancer: No Psychosocial: No Integumentary: No Blood Disorders: No Adverse Reaction/Blood Tranf: No (MAXIME BERGERON MEDICAL STUDENT) Family Medical History No Pertinent Family Hx (MAXIME BERGERON MEDICAL STUDENT) Physical Exam Vital Signs Vital Signs - First Documented 01/08/18 10:10 Temp 98.0 Pulse 60 Resp 16 B/P (MAP) 147/99 (115) Pulse Ox 98 O2 Delivery Room Air (SONY MCKEON) Vital Signs Capillary Refill : Less Than 3 Seconds (MAXIME BERGERON MEDICAL STUDENT) Height, Weight, BMI Height: 5'9.00" Weight: 267lbs. oz. 121.312479ri; BMI Method:Stated (MAXIME BERGERON MEDICAL STUDENT) General Appearance: No Apparent Distress Eyes: Bilateral Eye Normal Inspection, Bilateral Eye PERRL, Bilateral Eye EOMI HEENT: PERRL/EOMI, TMs Normal, Normal ENT Inspection, Pharynx Normal, Moist Mucous Membranes, Other (oral mucosa pink and moist) Neck: Full Range of Motion, Normal Inspection, Non Tender, Supple Respiratory: Chest Non Tender, Lungs Clear Cardiovascular: Regular Rate, Rhythm, Normal Peripheral Pulses Gastrointestinal: Normal Bowel Sounds, Non Tender, Soft Extremity: Normal Capillary Refill, Normal Inspection, Pedal Edema (1+) Neurologic/Psychiatric: Alert, Oriented x3, No Motor/Sensory Deficits, Normal Mood/Affect (SONY MCKEON) Procedures/Interventions Suture Size: 6-0 (MAXIME BERGERON MEDICAL STUDENT) Progress/Results/Core Measures Suspected Sepsis Recent Fever Within 48 Hours: No Infection Criteria Present: None New/Unexplained Altered Menta: No Sepsis Screen: No Definite Risk SIRS Temperature:98.0 Pulse: 60 Respiratory Rate: 16 Blood Pressure 147 /99 Mean: 115 (MAXIME BERGERON MEDICAL STUDENT) Results/Orders My Orders Orders - SONY MCKEON Acetaminophen Tablet/Caplet (Tylenol T (01/08/18 11:54) (SONY MCKEON) Vital Signs/I&O 01/08/18 01/08/18 10:10 12:25 Temp 98.0 98.0 Pulse 60 60 Resp 16 16 B/P (MAP) 147/99 (115) 147/99 (115) Pulse Ox 98 98 O2 Delivery Room Air (SONY MCKEON) Vital Signs/I&O Capillary Refill : Less Than 3 Seconds (MAXIME BERGERON MEDICAL STUDENT) Blood Pressure Mean: 115 Progress Note : Time: 11:30 Progress Note Initial evaluation completed, reviewed labs from earlier today, no indication to repeat at this time. Discussed recommendation for increasing water intake and alternating with Gatorade, I would also recommend Biotene for the dry mouth. Discharge instructions and return precautions reviewed. (SONY MCKEON) Departure Impression Primary Impression: Xerostomia Additional Impression: Peripheral neuropathic pain Disposition: 01 HOME, SELF-CARE Condition: Improved Departure-Patient Inst. Decision time for Depature: 11:50 (SONY MCKEON) Referrals: NYDIA MERINO MD (PCP/Family) Primary Care Physician Patient Instructions: Xerostomia Add. Discharge Instructions: Use Biotin 2-3 times daily for dry mouth. Increase water intake, alternate with Gatorade. Elevate feet for 30 min after waking. Keep scheduled appt with Dr. Merino and make appt with Dr. Conroy for neuropathy. Return to emergency dept for acute, emergent health problems. All discharge instructions reviewed with patient and/or family. Voiced understanding. Copy Copies To 1: SJ CAMPBELL; NYDIA MERINO MD, KYLE MEDICAL STUDENT Jan 08, 2018 11:33 SONY MCKEON Jan 08, 2018 11:54
[2018-01-08] MEDS ORDERED: ACETAMINOPHEN 325 MG TABLET PO STA (11:54)
[2018-01-08 12:25] VITALS: BP 147/99
== END 2018-01-08 12:25 | disposition home or self-care (01) ==
LOC: EDUNIT# 10:05 → ER 10:06
DX: R68.2 Dry mouth, unspecified (principal); M79.2 Neuralgia and neuritis, unspecified; G62.9 Polyneuropathy, unspecified; E78.00 Pure hypercholesterolemia, unspecified; E03.9 Hypothyroidism, unspecified; E66.9 Obesity, unspecified; Z88.5 Allergy status to narcotic agent
CPT/HCPCS: 99281

== ENCOUNTER → 2018-01-08 | Outpatient (CLI) | payer MEDICARE ==
[~2018-01-08] MED LIST changes: -IOHEXOL 350 MG/ML 100 ML (OMNIPAQUE 350) VIAL IV ONE; -NS 250 ML (IVPB) BAG IV ONE
== END ==
LOC: LABNPT 12:25
PROVIDERS: ATTEND Physician Assistant
DX: R73.9 Hyperglycemia, unspecified (principal); R63.1 Polydipsia; R35.8 Other polyuria
CPT/HCPCS: 83036

== ENCOUNTER 2018-01-10 09:09 | Outpatient (RCR) | payer MEDICARE | END 2018-01-11 | disposition home or self-care (01) | LOC: CR3 09:09 | PROVIDERS: ATTEND Internal Medicine | DX: Z29.8 Encounter for other specified prophylactic measures (principal) ==

== ENCOUNTER 2018-02-13 06:00 | Outpatient (RCR) | payer MEDICARE | END 2018-02-14 | disposition home or self-care (01) | LOC: CR3 06:00 | PROVIDERS: ATTEND Internal Medicine | DX: Z29.8 Encounter for other specified prophylactic measures (principal) ==

== ENCOUNTER 2018-03-07 13:09 | Outpatient (RCR) | payer MEDICARE | END 2018-03-10 07:44 | disposition home or self-care (01) | PROVIDERS: ATTEND Podiatrist Foot & Ankle Surgery | DX: M76.61 Achilles tendinitis, right leg (principal); M76.62 Achilles tendinitis, left leg ==

== ENCOUNTER 2018-03-19 10:12 | Outpatient (RCR) | payer MEDICARE | END 2018-03-20 | disposition home or self-care (01) | LOC: CR3 10:12 | PROVIDERS: ATTEND Internal Medicine | DX: Z29.8 Encounter for other specified prophylactic measures (principal) ==

== ENCOUNTER → 2018-04-16 | Outpatient (CLI) | payer MEDICARE ==
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
== END ==
LOC: RAD 09:04
PROVIDERS: ATTEND Nurse Practitioner
DX: M19.012 Primary osteoarthritis, left shoulder (principal); V89.2XXA Person injured in unspecified motor-vehicle accident, traffic, initial encounter
CPT/HCPCS: 73000; 73030

== ENCOUNTER 2018-04-17 06:00 | Outpatient (RCR) | payer MEDICARE | END 2018-04-20 | disposition home or self-care (01) | LOC: CR3 06:00 | PROVIDERS: ATTEND Internal Medicine | DX: Z29.8 Encounter for other specified prophylactic measures (principal) ==

== ENCOUNTER 2018-05-08 10:45 | Outpatient (RCR) | payer MEDICARE | END 2018-05-08 12:07 | disposition home or self-care (01) | PROVIDERS: ATTEND Podiatrist Foot & Ankle Surgery | DX: M76.61 Achilles tendinitis, right leg (principal); M76.62 Achilles tendinitis, left leg ==

== ENCOUNTER → 2018-05-21 | Outpatient (RCR) | payer MEDICARE | END | disposition home or self-care (01) | LOC: CR3 04-21 09:00 | PROVIDERS: ATTEND Internal Medicine | DX: Z29.8 Encounter for other specified prophylactic measures (principal) ==

== ENCOUNTER 2018-06-20 09:13 | Outpatient (RCR) | payer MEDICARE | END 2018-06-21 | disposition home or self-care (01) | LOC: CR3 09:13 | PROVIDERS: ATTEND Internal Medicine | DX: Z29.8 Encounter for other specified prophylactic measures (principal) ==

== ENCOUNTER 2018-07-23 09:39 | Outpatient (RCR) | payer MEDICARE | END 2018-07-24 | LOC: CR3 09:39 | PROVIDERS: ATTEND Internal Medicine | DX: Z29.8 Encounter for other specified prophylactic measures (principal) ==

== ENCOUNTER 2018-08-21 06:00 | Outpatient (RCR) | payer MEDICARE | END 2018-08-23 | disposition home or self-care (01) | LOC: CR3 06:00 | PROVIDERS: ATTEND Internal Medicine | DX: Z29.8 Encounter for other specified prophylactic measures (principal) ==

== ENCOUNTER → 2018-09-24 | Outpatient (RCR) | payer MEDICARE | END | disposition home or self-care (01) | LOC: CR3 08-25 09:00 | PROVIDERS: ATTEND Internal Medicine | DX: Z29.8 Encounter for other specified prophylactic measures (principal) ==

== ENCOUNTER → 2018-10-29 | Outpatient (RCR) | payer MEDICARE | END | disposition home or self-care (01) | LOC: CR3 09-29 09:00 | PROVIDERS: ATTEND Internal Medicine | DX: Z29.8 Encounter for other specified prophylactic measures (principal) ==

== ENCOUNTER 2018-12-31 10:04 | Outpatient (RCR) | payer MEDICARE | END 2019-01-01 | disposition home or self-care (01) | LOC: CR3 10:04 | PROVIDERS: ATTEND Internal Medicine | DX: Z29.8 Encounter for other specified prophylactic measures (principal) ==

== ENCOUNTER 2019-01-30 09:23 | Outpatient (RCR) | payer MEDICARE | END 2019-01-31 | disposition home or self-care (01) | LOC: CR3 09:23 | PROVIDERS: ATTEND Internal Medicine | DX: Z29.8 Encounter for other specified prophylactic measures (principal) ==

== ENCOUNTER 2019-03-04 15:51 | Outpatient (RCR) | payer MEDICARE | END 2019-03-05 | disposition home or self-care (01) | LOC: CR3 15:51 | PROVIDERS: ATTEND Internal Medicine | DX: Z29.8 Encounter for other specified prophylactic measures (principal) ==

== ENCOUNTER 2019-03-27 12:59 | Outpatient (RCR) | payer MEDICARE | END 2019-04-04 | disposition home or self-care (01) | LOC: CR3 12:59 | PROVIDERS: ATTEND Internal Medicine | DX: Z29.8 Encounter for other specified prophylactic measures (principal) ==

== ENCOUNTER → 2019-04-17 | Outpatient (CLI) | payer MEDICARE, OTHER ==
--- NOTE | 2019-04-17 10:22 | Diagnostic Imaging Report ---
PROCEDURE: MRI left joint lower extremity without contrast. TECHNIQUE: Multiplanar, multisequence non contrast-enhanced MRI of the left lower extremity was accomplished. INDICATION: Ankle pain. COMPARISON: There are no prior studies available for comparison. FINDINGS: On the coronal proton dense fat saturated sagittal series there is a small 5.2 x 5.8 mm area of altered signal in the subarticular region of the lateral aspect of the talar dome. 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 The talar dome is otherwise smooth and the ankle joint seems well maintained. The ankle mortise is not widened. There is no other abnormal signal arising from the osseous structures to indicate bone edema or a fracture. There is a split tear of the flexor hallucis longus tendon as it courses posterior to the distal tibia. There is also a partial tear of the peroneus brevis tendon. In addition there is fluid within the tendon sheaths of both peroneal tendons. This does suggest that there is an element of tenosynovitis present. The other ligaments and tendons are intact. There does appear to be mild soft tissue edema along the lateral aspect of the ankle joint. IMPRESSION: 1. 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 There is no acute bony abnormality noted otherwise. 2. There is a split tear of the flexor hallucis longus tendon and partial tear of the peroneus brevis tendon. There is also fluid in the tendon sheaths of the peroneal tendons consistent with tenosynovitis. 3. The other major ligaments and tendons appear to be intact. 4. There is soft tissue edema along the lateral aspect of the ankle joint. Dictated by: Dictated on workstation # [id number]
== END ==
LOC: RAD 08:20
PROVIDERS: ATTEND Podiatrist Foot & Ankle Surgery
DX: S96.011A Strain of muscle and tendon of long flexor muscle of toe at ankle and foot level, right foot, initial encounter (principal); M76.72 Peroneal tendinitis, left leg; E11.21 Type 2 diabetes mellitus with diabetic nephropathy; S86.312A Strain of muscle(s) and tendon(s) of peroneal muscle group at lower leg level, left leg, initial encounter; Z87.828 Personal history of other (healed) physical injury and trauma
CPT/HCPCS: 73721

== ENCOUNTER 2020-09-13 10:45 | Emergency (ER) | payer MEDICARE, OTHER ==
[~2020-09-13] VITALS: Ht 172 cm; Wt 127.0 kg
[2020-09-13 10:45] VITALS: BP 122/76
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
== END 2020-09-13 11:26 | disposition home or self-care (01) ==
LOC: EDUNIT# 10:54 → ER 10:55
DX: R20.2 Paresthesia of skin (principal); E66.9 Obesity, unspecified; Z68.45 Body mass index [BMI] 70 or greater, adult; Z88.5 Allergy status to narcotic agent
CPT/HCPCS: 99283